=== PATIENT | female | born 1955 | race Caucasian/White ===

== ENCOUNTER 2018-04-25 08:54 | Emergency (ER) | payer OTHER ==
[~2018-04-25] VITALS: Ht 152.4 cm; Wt 53.5 kg
[2018-04-25] MEDS ORDERED: TRAZODONE (09:15)
[2018-04-25] MEDS ORDERED: LEVOXYL (09:15)
[2018-04-25] MEDS ORDERED: TRAMADOL (09:15)
[2018-04-25] MEDS ORDERED: PRISTIQ (09:15)
[2018-04-25] MEDS ORDERED: GABAPENTIN (09:15)
--- NOTE | 2018-04-25 09:15 | NUR ---
PT IS IN ROOM #1B. DR BRIGHT EVALUATED THE PT.
--- NOTE | 2018-04-25 09:35 | NUR ---
PT WAS D/C'd TO HOME. D/C INSTRUCTIONS GIVEN TO THE PT.
[2018-04-25 09:36] VITALS: BP 132/81
== END 2018-04-25 09:40 | disposition home or self-care (01) ==
LOC: ER 08:54
DX: M54.6 Pain in thoracic spine (principal); E03.9 Hypothyroidism, unspecified; Z88.8 Allergy status to other drugs, medicaments and biological substances; Z79.899 Other long term (current) drug therapy
CPT/HCPCS: A4663

== ENCOUNTER 2018-04-28 09:53 | Emergency (ER) | payer OTHER ==
[~2018-04-28] VITALS: Ht 152.4 cm; Wt 54.4 kg
[~2018-04-28 09:53] MED LIST: GABAPENTIN; LEVOXYL; PRISTIQ; TRAMADOL; TRAZODONE
[2018-04-28] MEDS ORDERED: HYDROMORPHONE 2 MG/1 ML DISP.SYRIN ONE (10:46)
[2018-04-28] MEDS ORDERED: ONDANSETRON 4 MG/2 ML VIAL ONE (10:46)
--- NOTE | 2018-04-28 10:53 | NUR ---
PATIENT WAS SEEN BY MD FOR C/O SEVERE NECK PAIN. DILAUDID 2 MG IM GIVEN IN LEFT DELTOID AND ZOFRAN 4 MG IM GIVEN IN RIGHT BUTTOCKS MUSCLE. XRAY IN PROCESS.. PATIENT IS A/A/O X3
--- NOTE | 2018-04-28 11:42 | NUR ---
PATIENT STATES PAIN HAS DIMINISHED. DENIES NAUSEA. AWAITING FOR RADIOLOGY RESULTS..
--- NOTE | 2018-04-28 12:02 | NUR ---
SOFT COLLAR APPLIED ORDERED. DC, RX (INCLUDING PRECAUTIONS) GIVEN AND EXPLAINED TO PATIENT AND WHO STATE THEY UNDERSTAND ALL INSTRUCTIONS INCLUDING DILAUDID PRECAUTIONS.. TO DRIVE...
[2018-04-28 12:04] VITALS: BP 115/69
== END 2018-04-28 12:08 | disposition home or self-care (01) ==
LOC: ER 09:53
DX: S13.4XXA Sprain of ligaments of cervical spine, initial encounter (principal); E03.9 Hypothyroidism, unspecified; Z79.899 Other long term (current) drug therapy; X58.XXXA Exposure to other specified factors, initial encounter; Y93.89 Activity, other specified; Y92.89 Other specified places as the place of occurrence of the external cause; Y99.8 Other external cause status
CPT/HCPCS: 72040; 96372 ×2; 99283; J1170; J2405; A4663

== ENCOUNTER 2018-12-21 14:13 | Emergency (ER) | payer MEDICARE ==
[~2018-12-21] VITALS: Ht 149.9 cm; Wt 54.4 kg
--- NOTE | 2018-12-21 14:57 | NUR ---
at bedside to see and examine patient.
[2018-12-21 16:16] VITALS: BP 105/71
--- NOTE | 2018-12-21 16:17 | NUR ---
Patient discharged to home in stable conditon. Written and verbal after care instructions given. Patient verbalizes understanding of instructions. Patient was taken home by boyfriend.
== END 2018-12-21 16:19 | disposition home or self-care (01) ==
LOC: ER 14:13
DX: S80.12XA Contusion of left lower leg, initial encounter (principal); S83.92XA Sprain of unspecified site of left knee, initial encounter; F32.9 Major depressive disorder, single episode, unspecified; F41.9 Anxiety disorder, unspecified; E03.9 Hypothyroidism, unspecified; Z88.8 Allergy status to other drugs, medicaments and biological substances; Z79.899 Other long term (current) drug therapy; W01.0XXA Fall on same level from slipping, tripping and stumbling without subsequent striking against object, initial encounter; Y93.89 Activity, other specified; Y92.89 Other specified places as the place of occurrence of the external cause; Y99.8 Other external cause status
CPT/HCPCS: A4663

== ENCOUNTER 2021-02-23 11:53 | Emergency (ER) | payer MEDICARE ==
[~2021-02-23] VITALS: Ht 149.9 cm; Wt 53.1 kg
[2021-02-23] MEDS ORDERED: ONDANSETRON 4 MG/2 ML VIAL IV ONE (12:30)
[2021-02-23] MEDS ORDERED: MORPHINE SULFATE 2 MG/1 ML DISP.SYRIN IV ONE (12:30)
--- NOTE | 2021-02-23 12:31 | NUR ---
PT IS IN ROOM #2B. DR BRIGHT EVALUATED THE PT.
[2021-02-23] MEDS ORDERED: MORPHINE SULFATE 4 MG/1 ML DISP.SYRIN ONE (12:46)
[2021-02-23] MEDS ORDERED: ONDANSETRON 4 MG/2 ML VIAL ONE (12:46)
[2021-02-23 13:35] LABS: HEMATOCRIT 40.1 % (31.2-41.9); MEAN CORPUSCULAR HEMOGLOBIN 30.8 uug (24.7-32.8); MEAN CORPUSCULAR VOLUME 91.8 fL (75.5-95.3); PLATELET COUNT (AUTO) 257 K/uL (179-408)
[2021-02-23 13:36] LABS: ALANINE AMINOTRANSFERASE 21 U/L (14-59); ALKALINE PHOSPHATASE 49 U/L (50-136); ASPARTATE AMINOTRANSFERASE 14 U/L (15-37); BILIRUBIN,TOTAL 0.3 mg/dL (0.2-1.0); CARBON DIOXIDE 30 mmol/L (21-32); CHLORIDE 105 mmol/L (98-107); CREATININE 0.8 mg/dL (0.6-1.3); GLUCOSE 101 mg/dL (74-106); POTASSIUM 3.9 mmol/L (3.5-5.1); TOTAL PROTEIN, SERUM 7.1 g/dL (6.4-8.2); UREA NITROGEN, BLOOD 21 mg/dL (7-18)
[2021-02-23 13:43] LABS: BILIRUBIN,DIRECT < 0.1 mg/dL (0.0-0.2)
[2021-02-23] MEDS ORDERED: HYDR-4209 PO ×2 (14:04→15:40)
[2021-02-23] MEDS ORDERED: GABA-532 PO ×2 (14:04→15:40)
--- NOTE | 2021-02-23 15:20 | NUR ---
PT WAS D/C'd TO HOME. D/C INSTRUCTIONS GIVEN TO THE PT BY DR BRIGHT.
[2021-02-23 15:22] VITALS: BP 128/65
== END 2021-02-23 15:25 | disposition home or self-care (01) ==
LOC: ER 12:28
DX: G50.0 Trigeminal neuralgia (principal); Z90.5 Acquired absence of kidney; E89.0 Postprocedural hypothyroidism; Z85.850 Personal history of malignant neoplasm of thyroid; Z85.528 Personal history of other malignant neoplasm of kidney; R00.1 Bradycardia, unspecified
CPT/HCPCS: 36415; 70450; 80048; 80076; 84484; 85025; 86140; 93005; 96374; 96375; 99285; J2270; J2405; 70030-TC; A4663; J7030

== ENCOUNTER 2023-04-17 11:00 | Emergency (ER) | payer MEDICARE ==
[~2023-04-17] VITALS: Ht 152.4 cm; Wt 53.1 kg
[~2023-04-17 11:00] MED LIST changes: +GABA-532 PO; +HYDR-4209 PO
[2023-04-17 11:16] VITALS: O2SAT 97
[2023-04-17] MEDS ORDERED: NABU-140 PO (12:49)
== END 2023-04-17 12:59 | disposition left against medical advice (07) ==
LOC: ER 11:00
DX: M54.12 Radiculopathy, cervical region (principal); E11.9 Type 2 diabetes mellitus without complications; F32.A Depression, unspecified; E03.9 Hypothyroidism, unspecified; F41.9 Anxiety disorder, unspecified; Z79.899 Other long term (current) drug therapy; Z98.890 Other specified postprocedural states; Z20.822 Contact with and (suspected) exposure to COVID-19; Z88.1 Allergy status to other antibiotic agents
CPT/HCPCS: 70450; 72125; A4606; A4663

== ENCOUNTER 2024-01-17 10:58 | Emergency (ER) | payer MEDICARE ==
[~2024-01-17] VITALS: Ht 165.1 cm; Wt 59.0 kg
[~2024-01-17 10:58] MED LIST changes: +NABU-140 PO
[2024-01-17] MEDS ORDERED: diphenhydrAMINE 50 MG/1 ML VIAL ONE (11:32)
[2024-01-17] MEDS ORDERED: HYDROMORPHONE 1 MG/1 ML DISP.SYRIN ONE (11:32)
[2024-01-17] MEDS: diphenhydrAMINE 50 MG/1 ML VIAL IM ONE (11:38)
[2024-01-17] MEDS: HYDROMORPHONE 1 MG/1 ML DISP.SYRIN IM ONE (11:39)
[2024-01-17] MEDS ORDERED: NEOMY/BACITRA/POLYMYXIN B OINT UD PACKET TP ONE (11:44)
[2024-01-17] MEDS ORDERED: HYDR-3972 PO (11:47)
[2024-01-17] MEDS: NEOMY/BACITRA/POLYMYXIN B OINT UD PACKET TP ONE (11:58)
[2024-01-17 13:05] VITALS: BP 138/88; TEMP 97.2; O2SAT 97
== END 2024-01-17 13:06 | disposition home or self-care (01) ==
LOC: ER 10:59
DX: S02.2XXA Fracture of nasal bones, initial encounter for closed fracture (principal); S00.83XA Contusion of other part of head, initial encounter; E03.9 Hypothyroidism, unspecified; F32.A Depression, unspecified; F41.9 Anxiety disorder, unspecified; M47.812 Spondylosis without myelopathy or radiculopathy, cervical region; M25.562 Pain in left knee; Z79.899 Other long term (current) drug therapy; Z88.8 Allergy status to other drugs, medicaments and biological substances; Z85.528 Personal history of other malignant neoplasm of kidney; W01.0XXA Fall on same level from slipping, tripping and stumbling without subsequent striking against object, initial encounter; Y93.01 Activity, walking, marching and hiking; Y92.89 Other specified places as the place of occurrence of the external cause; Y99.8 Other external cause status
CPT/HCPCS: 99285; 70450; 73560; 70486; 72125; 96372 ×2; J1200; J1171; A4606; A4663